=== PATIENT | female | born 1955 | race Caucasian/White ===

== ENCOUNTER 2018-01-01 22:35 | Emergency (ER) | payer MEDICAID ==
--- NOTE | 2018-01-01 23:43 | EDM.PDOC ---
ED HPI GENERAL MEDICAL PROBLEM - General Chief Complaint: Diabetic Complaint Stated Complaint: MEDICAL VIA [facility] Time Seen by Provider: 01/01/18 23:33 Source of Information: Reports: Patient History Limitations: Reports: No Limitations - History of Present Illness INITIAL COMMENTS - FREE TEXT/NARRATIVE: Diabetic reaction: This is a 62-year-old female presents emergency room by EMS, reports a blood sugar of 20 at home. and they called EMS and she was administered glucose. She reports feeling a little better now but still very weak and fatigued. She had supper this evening and took 4 units of Humalog but reports probably did not eat enough food. Denies any recent illness, nausea vomiting or diarrhea. Has been taking her medicines as scheduled. EMS did give D10 at seen, but sugar rechecked at emergency room at 220, given orange juice with sugar, blood sugar rechecked to 20. Diabetes type 2 with Humalog sliding scale insulin coverage 1-15 units subcutaneous 3 times a day, Degludec 13 units i units a.m.n am. Onset: Today Duration: Hour(s):, Improving Location: Reports: Generalized Quality: Reports: Same as Previous Episode (Reports the low blood sugars [place] to other low blood sugars.) Improves with: Reports: Medication Worsens with: Reports: None Associated Symptoms: Reports: Weakness - Related Data Allergies Allergy/AdvReac Type Severity Reaction Status Date / Time acetaminophen [From Tylox] AdvReac Severe Vomiting Verified 01/01/18 22:57 oxycodone HCl [From Tylox] AdvReac Severe Vomiting Verified 01/01/18 22:57 Home Meds: Home Meds Albuterol Sulfate [Proair Hfa] 2 puff INH Q4H PRN 10/02/13 [History] Cyanocobalamin (Vitamin B-12) [Vitamin B-12] 1,000 mcg SL DAILY 10/02/13 [ History] FLUoxetine [PROzac] 40 mg PO ASDIRECTED 10/02/13 [History] Levothyroxine 275 mcg PO ACBRK 10/02/13 [History] Alendronate Sodium [Fosamax] 70 mg PO .QWEEK 08/12/14 [History] Aspirin [Adult Low Dose Aspirin EC] 81 mg PO DAILY 08/12/14 [History] Cyclobenzaprine [Flexeril] 10 mg PO ASDIRECTED 08/12/14 [History] Multivitamin [Kid's Vitamins] 1 tab PO BID 08/12/14 [History] Vit B Complex & C No.19/FA/D3 [Nephronex-Sl Tablet] 1 tab PO DAILY 08/12/14 [ History] Fluticasone/Salmeterol [Advair HFA 230-21 MCG] 2 puff INH BID 12/05/17 [History] Insulin Degludec [Tresiba Flextouch U-100] 11 unit SQ DAILY 12/05/17 [History] Insulin Lispro [Humalog] 1 - 15 units SQ TID 12/05/17 [History] L.acidoph,Paracasei, B.lactis [Probiotic] 1 each PO DAILY 12/05/17 [History] Lisinopril 20 mg PO DAILY 12/05/17 [History] Melatonin/Pyridoxine HCl (B6) [Melatonin 3 mg Tablet] 3 mg PO BEDTIME PRN [History] Metoprolol Succinate [Toprol XL] 25 mg PO DAILY 12/05/17 [History] Nicotine [Nicoderm CQ] 21 mg TD Q24H 12/05/17 [History] Nicotine [Nicotrol] 10 mg IH Q1H PRN 12/05/17 [History] amLODIPine [Norvasc] 2.5 mg PO DAILY 12/05/17 [History] atorvaSTATin [Lipitor] 40 mg PO BEDTIME 12/05/17 [History] traZODone HCl [Trazodone HCl] 50 mg PO BEDTIME 12/05/17 [History] Past Medical History Respiratory History: Reports: COPD Psychiatric History: Reports: Depression Endocrine/Metabolic History: Reports: Diabetes, Type II - Infectious Disease History Infectious Disease History: Reports: C-Difficile, Measles, Mumps Social & Family History - Family History Endocrine/Metabolic: Reports: Diabetes, type II - Tobacco Use Smoking Status *Q: Former Smoker Used Tobacco, but Quit: Yes Month/Year Tobacco Last Used: 11/23 - Caffeine Use Caffeine Use: Reports: Coffee, Tea Other Caffeine Use: 4-5 cups - Living Situation & Occupation Living situation: Reports: (Lives with in [facility] ED ROS GENERAL - Review of Systems Review Of Systems: See Below (Immediately we should 30 nausea giving sugar load shows just put on normal saline and) Constitutional: Reports: Weakness, Fatigue HEENT: Reports: No Symptoms Respiratory: Reports: No Symptoms Cardiovascular: Reports: No Symptoms Endocrine: Reports: No Symptoms GI/Abdominal: Reports: No Symptoms ( all self-care) : Reports: No Symptoms Musculoskeletal: Reports: No Symptoms Skin: Reports: No Symptoms Neurological: Reports: No Symptoms Psychiatric: Reports: No Symptoms Hematologic/Lymphatic: Reports: No Symptoms Immunologic: Reports: No Symptoms ED EXAM GENERAL NO PERIP PULSE - Physical Exam Exam: See Below (History 55) Exam Limited By: No Limitations General Appearance: Alert, WD/WN, No Apparent Distress, Other (Very pale, skin is cool to touch. ) Eye Exam: Bilateral Eye: PERRL Ears: Normal External Exam, Normal Canal, Hearing Grossly Normal, Normal TMs Nose: Normal Inspection, Normal Mucosa, No Blood Throat/Mouth: Normal Inspection, Normal Lips, Normal Teeth, Normal Gums, Normal Oropharynx, Normal Voice, No Airway Compromise Head: Atraumatic, Normocephalic Neck: Normal Inspection, Supple, Non-Tender, Full Range of Motion Respiratory/Chest: No Respiratory Distress, Lungs Clear, Normal Breath Sounds, No Accessory Muscle Use, Chest Non-Tender Cardiovascular: Regular Rate, Rhythm, No Murmur GI/Abdominal: Normal Bowel Sounds, Soft, Non-Tender, No Organomegaly, No Distention, No Abnormal Bruit, No Mass (Female) Exam: Deferred Rectal (Female) Exam: Deferred Back Exam: Normal Inspection, Full Range of Motion Extremities: Normal Inspection, Normal Range of Motion, Non-Tender, Normal Capillary Refill, No Pedal Edema Neurological: No Motor/Sensory Deficits Psychiatric: Normal Affect, Normal Mood Skin Exam: Warm, Dry, Pallor Lymphatic: No Adenopathy Course - Vital Signs Last Recorded V/S: Last Vital Signs Temp 35.1 C L 01/02/18 01:37 Pulse 58 L 01/02/18 01:37 Resp 18 01/02/18 01:37 BP 133/71 01/02/18 01:37 Pulse Ox 94 L 01/02/18 01:37 - Orders/Labs/Meds Orders: Active Orders 24 hr Category Date Time Status UA W/MICROSCOPIC [URIN] Urgent Lab 01/01/18 23:39 Ordered Sodium Chloride 0.9% [Normal Saline] 1,000 ml Med 01/02/18 00:45 Active IV ASDIRECTED Medication Orders Sodium Chloride (Normal Saline) 1,000 mls @ 999 mls/hr IV ASDIRECTED ERIC Last Admin: 01/02/18 00:30 Dose: 999 mls/hr Labs: Laboratory Tests 01/01/18 01/01/18 01/01/18 Range/Units 23:49 23:49 23:49 WBC 6.3 (4.5-11.0) K/uL RBC 4.03 (3.30-5.50) M/uL Hgb 12.8 (12.0-15.0) g/dL Hct 39.1 (36.0-48.0) % MCV 97 (80-98) fL MCH 32 H (27-31) pg MCHC 33 (32-36) % Plt Count 290 (150-400) K/uL Neut % (Auto) 85 H (36-66) % Lymph % (Auto) 9 L (24-44) % [place] % (Auto) 5 (2-6) % Eos % (Auto) 0 L (2-4) % Baso % (Auto) 0 (0-1) % Sodium 136 L (140-148) mmol/L Potassium 4.1 (3.6-5.2) mmol/L Chloride 100 (100-108) mmol/L Carbon Dioxide 22 (21-32) mmol/L Anion Gap 18.1 H (5.0-14.0) mmol/L BUN 16 (7-18) mg/dL Creatinine 1.0 (0.6-1.0) mg/dL Est Cr Clr Drug Dosing 44.95 mL/min Estimated GFR (MDRD) 56 L (>60) Glucose 237 H (74-106) mg/dL Calcium 7.8 L (8.5-10.1) mg/dL Magnesium 1.9 (1.8-2.4) mg/dL Lipase 103 (73-393) U/L TSH, Ultra Sensitive 0.236 L (0.358-3.740) uIU/mL Meds: Medications Generic Name Dose Route Start Last Admin Trade Name Freq PRN Reason Stop Dose Admin Sodium Chloride 1,000 mls @ 999 mls/hr 01/02/18 00:45 01/02/18 00:30 Normal Saline IV 999 mls/hr ASDIRECTED ERIC Administration Discontinued Medications Generic Name Dose Route Start Last Admin Trade Name Freq PRN Reason Stop Dose Admin Lactated Ringer's 1,000 mls @ 999 mls/hr 01/01/18 23:45 Ringers, Lactated IV ASDIRECTED ERIC Dextrose/Sodium Chloride 1,000 mls @ 999 mls/hr 01/01/18 23:45 Dextrose 5%-1/2 Ns IV ASDIRECTED ERIC - Re-Assessments/Exams Free Text/Narrative Re-Assessment/Exam: 01/01/18 23:51 Labs CBC, CMP BMP, lipase, TSH, and urine Meds: Normal saline 01/02/18 01:04 Labs CBC negative, BMP sodium 136, glucose 237 and TSH 0.2360 others are within normal limits Discussed with Mrs. Olivarez lab results, advised to hold Tuesday's dose of Synthroid, and follow up with her primary care provider on Tuesday for a recheck. Departure - Departure Time of Disposition: 01:42 Disposition: Home, Self-Care 01 Clinical Impression: Hypoglycemia - Discharge Information Instructions: Hypoglycemia, [id number] Referrals: Quynh House MD [Primary Care Provider] - Forms: ED Department Discharge Care Plan Goals: Hypogylcemia -resolved with glucose -advise to eat healthy -follow up with Primary Care for recheck Thyroid, too much medication -TSH 0.236 -hold Tuesday's dose of Synthroid -follow up with Primary Care on Tuesday Return to ER if symptoms return or not improved. - Problem List & Annotations (1) Abnormal thyroid stimulating hormone level SNOMED Code(s): 770301636 Code(s): R94.6 - ABNORMAL RESULTS OF THYROID FUNCTION STUDIES Status: Acute Priority: Low Current Visit: Yes (2) Hypoglycemia SNOMED Code(s): 176080256 Code(s): E16.2 - HYPOGLYCEMIA, UNSPECIFIED Status: Acute Priority: High Current Visit: Yes - Problem List Review Problem List Initiated/Reviewed/Updated: Yes - My Orders Last 24 Hours: My Active Orders 01/01/18 23:39 UA W/MICROSCOPIC [URIN] Urgent 01/02/18 00:45 Sodium Chloride 0.9% [Normal Saline] 1,000 ml IV ASDIRECTED - Assessment/Plan Last 24 Hours: My Active Orders 01/01/18 23:39 UA W/MICROSCOPIC [URIN] Urgent 05/28/18 00:45 Sodium Chloride 0.9% [Normal Saline] 1,000 ml IV ASDIRECTED Plan: Landed withdrawalgylcemia -resolved with glucose -advise to eat healthy -follow up with Primary Care for recheck Thyroid, too much medication -TSH 0.236 -hold Tuesday's dose of Synthroid -follow up with Primary Care on Tuesday Return to ER if symptoms return or not improved.
[2018-01-01] MEDS ORDERED: Lactated Ringers 1,000 ML IV SCH (23:45)
[2018-01-01] MEDS ORDERED: Dextrose 5%-0.45% NaCl 1,000 ML IV SCH (23:45)
[2018-01-02] MEDS ORDERED: Sodium Chloride 0.9% 1,000 ML IV SCH (00:45)
[2018-01-02 01:40] VITALS: BP 133/71
== END 2018-01-02 01:47 | disposition home or self-care (01) ==
LOC: JP.ED 22:35
DX: E11.649 Type 2 diabetes mellitus with hypoglycemia without coma (principal); J44.9 Chronic obstructive pulmonary disease, unspecified; F32.9 Major depressive disorder, single episode, unspecified; Z79.82 Long term (current) use of aspirin; Z79.899 Other long term (current) drug therapy; Z79.4 Long term (current) use of insulin; Z87.891 Personal history of nicotine dependence; Z88.6 Allergy status to analgesic agent
CPT/HCPCS: 36415; 80048; 83690; 83735; 84443; 85025; 99285; J7030

== ENCOUNTER 2018-02-14 21:15 | Emergency (ER) | payer MEDICAID ==
--- NOTE | 2018-02-14 22:21 | EDM.PDOC ---
ED HPI GENERAL MEDICAL PROBLEM - General Chief Complaint: Diabetic Complaint Stated Complaint: MEDICAL [facility]IA [facility] Time Seen by Provider: 02/14/18 22:02 Source of Information: Reports: Patient, EMS, Family (Spouse), Old Records, RN Notes Reviewed History Limitations: Reports: No Limitations - History of Present Illness INITIAL COMMENTS - FREE TEXT/NARRATIVE: EMS arrival, received glucagon given by her and glucose administered by EMS prior to arrival Chief complaint Decreased responsiveness, low blood sugar History of present illness 62-year-old female with type 2 diabetes, on NovoLog sliding scale and Treciba long-acting [place] fine this evening at 7 PM when her checked her at 8 PM she was very lethargic, her blood sugar was 22. He tried administering glucagon which seemed to have no effect so called EMS. From her homework, her last blood sugar was 180 5 PM but there was no insulin marked down as given. It suspected that she did give her insulin probably 6 or 7 units but forgot to write down. She ate very little for dinner, for some reason had very little appetite. Now that she's been given sugar she started to wake up and is becoming more alert as time goes on. No recent illness or infection No abdominal pain or chest pain No difficulties breathing She's had similar problems previous he has come to emergency before for hyperglycemia. Recently quit smoking, she is using a nicotine patch. History of bariatric surgery appendectomy cholecystectomy. Denies Pain Score (Numeric/FACES): 0 - Related Data Allergies Allergy/AdvReac Type Severity Reaction Status Date / Time acetaminophen [From Tylox] AdvReac Severe Vomiting Verified 02/14/18 21:31 oxycodone HCl [From Tylox] AdvReac Severe Vomiting Verified 02/14/18 21:31 Home Meds: Home Meds Albuterol Sulfate [Proair Hfa] 2 puff INH Q4H PRN 10/02/13 [History] Cyanocobalamin (Vitamin B-12) [Vitamin B-12] 1,000 mcg SL DAILY 10/02/13 [ History] FLUoxetine [PROzac] 40 mg PO ASDIRECTED 10/02/13 [History] Levothyroxine 275 mcg PO ACBRK 10/02/13 [History] Alendronate Sodium [Fosamax] 70 mg PO .QWEEK 08/12/14 [History] Aspirin [Adult Low Dose Aspirin EC] 81 mg PO DAILY 08/12/14 [History] Cyclobenzaprine [Flexeril] 10 mg PO ASDIRECTED 08/12/14 [History] Multivitamin [Kid's Vitamins] 1 tab PO BID 08/12/14 [History] Vit B Complex & C No.19/FA/D3 [Nephronex-Sl Tablet] 1 tab PO DAILY 08/12/14 [ History] Fluticasone/Salmeterol [Advair HFA 230-21 MCG] 2 puff INH BID 12/05/17 [History] Insulin Degludec [Tresiba Flextouch U-100] 11 unit SQ DAILY 12/05/17 [History] Insulin Lispro [Humalog] 1 - 15 units SQ TID 12/05/17 [History] L.acidoph,Paracasei, B.lactis [Probiotic] 1 each PO DAILY 12/05/17 [History] Lisinopril 20 mg PO DAILY 12/05/17 [History] Melatonin/Pyridoxine HCl (B6) [Melatonin 3 mg Tablet] 3 mg PO BEDTIME PRN [History] Metoprolol Succinate [Toprol XL] 25 mg PO DAILY 12/05/17 [History] Nicotine [Nicoderm CQ] 21 mg TD Q24H 12/05/17 [History] Nicotine [Nicotrol] 10 mg IH Q1H PRN 12/05/17 [History] amLODIPine [Norvasc] 2.5 mg PO DAILY 12/05/17 [History] atorvaSTATin [Lipitor] 40 mg PO BEDTIME 12/05/17 [History] traZODone HCl [Trazodone HCl] 50 mg PO BEDTIME 12/05/17 [History] Past Medical History HEENT History: Reports: Impaired Vision Cardiovascular History: Reports: Hypertension Respiratory History: Reports: COPD Psychiatric History: Reports: Depression Endocrine/Metabolic History: Reports: Diabetes, Type I - Infectious Disease History Infectious Disease History: Reports: Chicken Pox, Measles, Mumps - Past Surgical History GI Surgical History: Reports: Appendectomy, Bariatric Procedure, Cholecystectomy , Colonoscopy Social & Family History - Family History Endocrine/Metabolic: Reports: Diabetes, type II - Tobacco Use Smoking Status *Q: Former Smoker Years of Tobacco use: 40 Packs/Tins Daily: 1 Used Tobacco, but Quit: Yes Month/Year Tobacco Last Used: November 2019 Second Hand Smoke Exposure: No - Caffeine Use Caffeine Use: Reports: Coffee Other Caffeine Use: 4-5 cups - Alcohol Use Days Per Week of Alcohol Use: 0 - Recreational Drug Use Recreational Drug Use: No - Living Situation & Occupation Living situation: Reports: (Lives with in [facility] ED ROS GENERAL - Review of Systems Review Of Systems: See Below Constitutional: Reports: Decreased Appetite HEENT: Reports: No Symptoms Respiratory: Reports: No Symptoms Cardiovascular: Reports: No Symptoms Endocrine: Reports: Fatigue, Low Glucose GI/Abdominal: Reports: No Symptoms : Reports: No Symptoms Skin: Reports: No Symptoms Neurological: Reports: Other (Decreased responsiveness earlier, better now) Psychiatric: Reports: No Symptoms Immunologic: Reports: No Symptoms ED EXAM GENERAL NO PERIP PULSE - Physical Exam Exam: See Below Exam Limited By: No Limitations General Appearance: Alert, No Apparent Distress, Other (Vital signs normal, looks tired but otherwise well) Eye Exam: Bilateral Eye: Normal Inspection Ears: Normal External Exam Nose: Normal Inspection Throat/Mouth: Normal Inspection Head: Atraumatic, Normocephalic Neck: Normal Inspection Respiratory/Chest: No Respiratory Distress, Lungs Clear, No Accessory Muscle Use Cardiovascular: Normal Peripheral Pulses, Regular Rate, Rhythm GI/Abdominal: Soft, Non-Tender Extremities: Normal Inspection Neurological: Alert, Oriented, No Motor/Sensory Deficits Psychiatric: Normal Affect Skin Exam: Warm, Dry, Intact, Normal Color Course - Vital Signs Last Recorded V/S: Last Vital Signs Temp 35.4 C 02/14/18 21:40 Pulse 64 02/14/18 21:40 Resp 16 02/14/18 21:40 BP 126/66 02/14/18 21:40 Pulse Ox 91 L 02/14/18 21:40 - Re-Assessments/Exams Free Text/Narrative Re-Assessment/Exam: 02/14/18 22:20 62-year-old female with type 2 diabetes, decreased responsiveness as at home due to hypoglycemia Now that she's been given dextrose prior to arrival, she is becoming much more alert and feels well. 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
[2018-02-14] MEDS ORDERED: Budesonide 0.5 MG/2 ML Neb Susp NEB ONE (23:23)
[2018-02-14] MEDS ORDERED: Doxycycline 100 MG Cap PO ONE (23:23)
[2018-02-14] MEDS ORDERED: predniSONE 20 MG Tab PO ONE (23:23)
[2018-02-14 23:33] VITALS: BP 130/73
== END 2018-02-14 23:20 | disposition home or self-care (01) ==
LOC: JP.ED 21:15
DX: E11.649 Type 2 diabetes mellitus with hypoglycemia without coma (principal); I10 Essential (primary) hypertension; J44.9 Chronic obstructive pulmonary disease, unspecified; F32.9 Major depressive disorder, single episode, unspecified; Z79.4 Long term (current) use of insulin; Z87.891 Personal history of nicotine dependence; Z79.899 Other long term (current) drug therapy
CPT/HCPCS: 82962; 99284-25

== ENCOUNTER 2018-10-09 05:51 | Day surgery (SDC) | payer MEDICAID, MEDICARE ==
[2018-10-09] MEDS ORDERED: Dextrose 5%-Lactated Ringers 1,000 ML IV SCH (06:45)
[2018-10-09] MEDS ORDERED: fentaNYL 100 MCG/2 ML SDV ONE (07:01)
[2018-10-09] MEDS ORDERED: Midazolam 1 MG/ML 2 ML SDV ONE (07:01)
[2018-10-09] MEDS ORDERED: Propofol 200 MG/20 ML SDV ONE (07:01)
[2018-10-09 09:35] VITALS: BP 179/83
--- NOTE | 2018-10-17 07:53 | OR ---
DATE OF PROCEDURE: 10/09/2018 PREOPERATIVE DIAGNOSIS: Indications for screening colonoscopy. POSTOPERATIVE DIAGNOSIS: A single small rectal polyp. OPERATIVE PROCEDURE: Flexible colonoscopy with polypectomy by snare technique ([id number]). ANESTHESIA: IV sedation. INDICATION FOR PROCEDURE: This is a 63-year-old presenting for a screening colonoscopy. The plan is to proceed with a colonoscopy with biopsies and/or polypectomies as indicated. Potential risks including bleeding and perforation were discussed, and the patient wishes to proceed. DESCRIPTION OF PROCEDURE: The patient was taken to the operating room and placed in a left lateral decubitus position. IV sedation was administered, after which the initial digital rectal exam was performed, which was unremarkable. Colonoscope was then passed into the rectum with retroflexion revealing uncomplicated hemorrhoidal columns. The scope was eventually passed to the cecum. There was a small amount of liquid stool present, but the vast majority of the surfaces of the colon and rectum was well visualized. To that level, there were no areas of diverticula or areas of colitis. A single polyp was noted at roughly 10 cm from dentate line, this measuring only around 3-4 mm. Apart from that, no additional abnormalities were noted. Upon re-identification of polyp upon withdrawal of the scope, it was encircled with a cautery snare and excised, good hemostasis was noted at the base, and the polyp was retrieved through the suction of the colonoscope and was sent for histologic evaluation. At that point, no further problems were noted, and the procedure was then concluded. We will await the pathology report. If this is an adenomatous polyp, a followup colonoscopy should be undertaken in 2 years. Mario Alexis MD /[id number]
== END 2018-10-09 10:36 | disposition home or self-care (01) ==
LOC: JP.SDS 05:51
PROVIDERS: ATTEND Surgery
DX: Z12.11 Encounter for screening for malignant neoplasm of colon (principal); K63.5 Polyp of colon; J44.9 Chronic obstructive pulmonary disease, unspecified; I12.9 Hypertensive chronic kidney disease with stage 1 through stage 4 chronic kidney disease, or unspecified chronic kidney disease; E11.22 Type 2 diabetes mellitus with diabetic chronic kidney disease; N18.3 Chronic kidney disease, stage 3 (moderate); Z79.4 Long term (current) use of insulin; Z79.899 Other long term (current) drug therapy; Z88.5 Allergy status to narcotic agent; Z88.6 Allergy status to analgesic agent
CPT/HCPCS: 45385; 82962; 88305; J2250; J2704; J3010; J7042